=== PATIENT | male | born 1995 | race Caucasian/White ===

== ENCOUNTER 2016-08-16 17:27 | Emergency (ER) | payer SELFPAY ==
[2016-08-16 17:46] VITALS: BMI 18.3
--- NOTE | 2016-08-16 17:58 | DR.GENAD ---
HPI - PCP Primary Care Physician: NFD - Complaint/Symptoms Chief Complaint:: PT C/O ABD PAIN, FEVER AND DIARRHEA THAT STARTED LAST NIGHT. PT STATES HE ATE SOME FISH LAST NIGHT AND SWALLOWED A BONE AND IT WENT DOWN INTO HIS STOMACH AND HE BEGAN TO HAVE SEVERE ABD PAIN AFTER THAT. PT STATES HE STARTED WITH THE SHAKING THIS AM. - Source History Provided: Patient - Mode of Arrival Mode of Arrival: Ambulatory - Timing Onset of Chief Complaint: 08/15/16 PMH - PMH Past Medical History: No Past Surgical History: Yes Past Surgical History Comment: HEAD - Family History History of Family Medical Conditions: No - Social History Does any household member use tobacco: No Alcohol Use: None Do you use any recreational Drugs:: No Lives With: Family Lives Where: Home - infectious screening In the last 2 months have you had wt loss of >10#?: NO Have you had fever, night sweats or hemotysis?: No Have you traveled outside the country in the last 6 months?: No Isolation: Standard PE - Vital Signs Vitals: Temperature 97.9 F Pulse Rate [Left Brachial] 77 Pulse Rate 85 Respiratory Rate 18 Blood Pressure [Left Arm] 138/84 Blood Pressure 159/104 O2 Sat by Pulse Oximetry 99 ROR - Labs Reviewed Result Diagrams: 08/16/16 18:00 08/16/16 18:00 Laboratory: WBC 4.2 X10^3/uL (3.6-10.0) 08/16/16 18:00 RBC 4.39 X10^6/uL (4.7-6.0) L 08/16/16 18:00 Hgb 15.3 g/dL (13.5-18.0) 08/16/16 18:00 Hct 44.6 % (42.0-54.0) 08/16/16 18:00 MCV 101.6 fL (80.0-100.0) H 08/16/16 18:00 MCH 34.9 pg (27.0-34.0) H 08/16/16 18:00 MCHC 34.4 g/dL (33.0-35.0) 08/16/16 18:00 RDW 13.1 % (11.6-16.5) 08/16/16 18:00 Plt Count 188 X10^3/uL (150.0-450.0) 08/16/16 18:00 MPV 7.3 fL (7.4-11.0) L 08/16/16 18:00 Neut % 74.4 % (42.0-75.0) 08/16/16 18:00 Lymph % 14.0 % (21.0-51.0) L 08/16/16 18:00 [place] % 10.9 % (0.0-13.0) 08/16/16 18:00 Eos % 0.0 % (0.9-2.9) L 08/16/16 18:00 Baso % 0.7 % (0.2-1.0) 08/16/16 18:00 Neut # 3.1 x10^3/uL (2.2-4.8) 08/16/16 18:00 Lymph # 0.6 X10^3/uL (1.3-2.9) L 08/16/16 18:00 [place] # 0.5 x10^3/uL (0.3-0.8) 08/16/16 18:00 Eos # 0.0 x10^3/uL (0.0-0.2) 08/16/16 18:00 Baso # 0.0 X10^3/uL (0.0-0.1) 08/16/16 18:00 Absolute Nucleated RBC 0.1 /100WBC 08/16/16 18:00 Sodium 139 mmol/L (136-145) 08/16/16 18:00 Corrected Sodium TNP 08/16/16 18:00 Potassium 3.8 mmol/L (3.5-5.1) 08/16/16 18:00 Chloride 99 mmol/L (98-107) 08/16/16 18:00 Carbon Dioxide 26.1 mmol/L (21-32) 08/16/16 18:00 BUN 7 mg/dL (7-18) 08/16/16 18:00 Creatinine 0.71 mg/dL (0.70-1.30) 08/16/16 18:00 Est GFR (MDRD) Af Amer > 60 (>60) 08/16/16 18:00 Est GFR (MDRD) Non-Af > 60 (>60) 08/16/16 18:00 Glucose 97 mg/dL (65-99) 08/16/16 18:00 Calcium 9.5 mg/dL (8.5-10.1) 08/16/16 18:00 C-Reactive Protein 0.50 mg/L (0-3.0) 08/16/16 18:00 H. pylori IgG Antibody Negative (NEGATIVE) 08/16/16 18:00 - XRAY XRAY Interpreted by: Radiologist (KUB: no acute pathology) - Diagnosis Discharge Problem: Abdominal pain Qualifiers: Abdominal location: generalized Qualified Code(s): R10.84 - Generalized abdominal pain - Discharge Plan Condition: Stable - Follow ups/Referrals Follow ups/Referrals: NFD,None [Primary Care Provider] - 3 days - Instructions
[2016-08-16] MEDS ORDERED: BENTYL CAP 10 MG PO ONE ×2 (18:00→18:04)
[2016-08-16 18:21] LABS: BASOPHILS % (AUTO) 0.7 % (0.2-1.0); HEMATOCRIT 44.6 % (42.0-54.0); HEMOGLOBIN 15.3 g/dL (13.5-18.0); LYMPHOCYTES # (AUTO) 0.6 X10^3/uL (1.3-2.9); MEAN CORPUSCULAR HEMOGLOBIN 34.9 pg (27.0-34.0); MEAN CORPUSCULAR HGB CONC 34.4 g/dL (33.0-35.0); MEAN CORPUSCULAR VOLUME 101.6 fL (80.0-100.0); MEAN PLATELET VOLUME 7.3 fL (7.4-11.0); MONOCYTES # (AUTO) 0.5 x10^3/uL (0.3-0.8); MONOCYTES % (AUTO) 10.9 % (0.0-13.0); NEUTROPHILS # (AUTO) 3.1 x10^3/uL (2.2-4.8); NEUTROPHILS % (AUTO) 74.4 % (42.0-75.0); PLATELET COUNT 188 X10^3/uL (150.0-450.0); RED BLOOD COUNT 4.39 X10^6/uL (4.7-6.0); RED CELL DISTRIBUTION WIDTH 13.1 % (11.6-16.5); WHITE BLOOD COUNT 4.2 X10^3/uL (3.6-10.0)
[2016-08-16 18:26] LABS: BLOOD UREA NITROGEN 7 mg/dL (7-18); CALCIUM 9.5 mg/dL (8.5-10.1); CARBON DIOXIDE 26.1 mmol/L (21-32); CHLORIDE 99 mmol/L (98-107); CREATININE 0.71 mg/dL (0.70-1.30); GLUCOSE 97 mg/dL (65-99); SODIUM 139 mmol/L (136-145); eGFR BLACK RACES > 60 (>60); eGFR NON BLACK RACES > 60 (>60)
[2016-08-16 18:56] VITALS: BP 138/84
--- NOTE | 2016-08-16 19:27 | RAD ---
EXAM: Abdomen x-ray INDICATION: Abdominal pain COMPARISION: No priors TECHNIQUE: AP view, single view FINDINGS: The bowel loops are nonobstructed. No abnormal mass or calcification is identified. The regional ske leton is intact. IMPRESSION: Normal single view abdominal x-ray examination Reported By:
== END 2016-08-16 19:45 | disposition home or self-care (01) ==
LOC: ER 17:40
DX: R10.84 Generalized abdominal pain (principal)
CPT/HCPCS: 36415; 74000; 80048; 85025; 86140; 86677; 96365; 99282; 99283; A4222